=== PATIENT | male | born 1935 | race Caucasian/White ===

== ENCOUNTER 2017-11-07 07:42 | Day surgery (SDC) | payer OTHER ==
[~2017-11-07] VITALS: Ht 180.3 cm; Wt 71.8 kg
[~2017-11-07 07:42] MED LIST: ALBU90OI61; ASPI81CH; CICLOPIROX 8%34.6 ML; DAILY MULTIPLE1 EACH; FISH1000; METF500 PO; TRIA80TC
== END 2017-11-07 10:04 | disposition home or self-care (01) ==
LOC: ORSCSDS 07:42
PROVIDERS: Internal Medicine Gastroenterology
PROC: 0DBL8ZX Excision of Transverse Colon, Via Natural or Artificial Opening Endoscopic, Diagnostic (ICD-10-PCS; principal; 2017-11-07 09:00)
DX: R19.4 Change in bowel habit (principal); D12.3 Benign neoplasm of transverse colon; K57.30 Diverticulosis of large intestine without perforation or abscess without bleeding; K64.8 Other hemorrhoids; E11.9 Type 2 diabetes mellitus without complications; E78.5 Hyperlipidemia, unspecified; I10 Essential (primary) hypertension; D64.9 Anemia, unspecified; Z80.0 Family history of malignant neoplasm of digestive organs; Z86.010 Personal history of colon polyps; Z87.891 Personal history of nicotine dependence; Z79.84 Long term (current) use of oral hypoglycemic drugs; Z79.899 Other long term (current) drug therapy
CPT/HCPCS: 82947; 88305; J7120

== ENCOUNTER → 2018-07-15 | Outpatient (CLI) | payer OTHER | END | disposition home or self-care (01) | LOC: LAB SHORT 10:16 → PLD 10:16 | DX: D48.5 Neoplasm of uncertain behavior of skin (principal) | CPT/HCPCS: 88305 ==

== ENCOUNTER → 2018-07-22 | Outpatient (CLI) | payer OTHER | END | disposition home or self-care (01) | LOC: LAB SHORT 14:36 → PLD 14:36 | DX: C44.310 Basal cell carcinoma of skin of unspecified parts of face (principal) | CPT/HCPCS: 88305 ==

== ENCOUNTER 2019-03-03 11:00 | Inpatient (IN) | payer OTHER ==
[~2019-03-03] VITALS: Ht 182.9 cm; Wt 75.2 kg
[2019-03-03 11:47] LABS: BASOPHILS ABSOLUTE AUTO 0.07 K/mm3 (0.00-0.23); BASOPHILS PERCENT AUTO 1 % (0-2); EOSINOPHILS ABSOLUTE AUTO 0.31 K/mm3 (0.00-0.68); EOSINOPHILS PERCENT AUTO 3 % (0-6); Hematocrit 35.5 % (37.0-53.0); Hemoglobin 11.9 g/dL (13.5-17.5); IMMATURE GRAN ABSOLUTE AUTO 0.04 K/mm3 (0.00-0.10); IMMATURE GRAN PERCENT AUTO 0 % (0-1); LYMPHOCYTES ABSOLUTE AUTO 2.06 K/mm3 (0.84-5.20); LYMPHOCYTES PERCENT AUTO 21 % (21-46); MONOCYTES ABSOLUTE AUTO 0.61 K/mm3 (0.16-1.47); MONOCYTES PERCENT AUTO 6 % (4-13); Mean Corpuscular HGB 31.4 pg (26.0-34.0); Mean Corpuscular HGB Conc 33.5 g/dL (31.5-36.5); Mean Corpuscular Volume 94 fL (80-100); Mean Platelet Volume 9.5 fL (9.1-12.4); NEUTROPHILS ABSOLUTE AUTO 6.71 K/mm3 (1.96-9.15); NEUTROPHILS PERCENT AUTO 69 % (41-73); Platelet Count 217 K/mm3 (150-400); RDW Coefficient Variation 11.8 % (11.7-14.2); RDW Standard Deviation 40.4 fL (35.1-46.3); Red Blood Cell Count 3.79 M/mm3 (4.30-5.90)
[2019-03-03 12:00] LABS: Albumin, Blood 3.6 g/dL (3.4-5.0); Albumin/Globulin Ratio 0.9 (0.8-1.8); Bilirubin, Total 0.4 mg/dL (0.1-1.0); Bun/Creatinine Ratio 15.9 (12.0-20.0); Calcium, Blood 8.7 mg/dL (8.5-10.1); Creatinine, Blood 1.45 mg/dL (0.60-1.20); Potassium, Blood 4.1 mmol/L (3.5-5.5); Total Protein, Blood 7.6 g/dL (6.4-8.2); Troponin I 0.089 ng/mL (0.000-0.040)
[2019-03-03 12:10] LABS: International Normalized Ratio 0.97; Prothrombin Time Results 10.3 Sec (9.7-11.5)
--- NOTE | 2019-03-03 15:06 | NUR ---
Echocardiogram completed.
--- NOTE | 2019-03-03 16:10 | NUR ---
Assumed care of patient @ 1610. Received report from ED nurse Tisha. Patient arrived on ER bed transported by jewelry technician. Patient transferred self to bed with standby assist and was able to follow verbal commands. Oriented to room and call light. Urinal provided at bedside.
--- NOTE | 2019-03-03 17:55 | NUR ---
Shift Summary Patient arrived to unit 1610. Pleasant and cooperative with care. Very hard of hearing. 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 1 person SBA to bathroom and urinal at bedside. Tele. No c/o pain, N/V/D. Patient state independent at home. Still complaining of slight right arm weakness which is no different from before coming to the hospital. Will continue to monitor.
--- NOTE | 2019-03-04 03:56 | NUR ---
SHIFT SUMMARY PT ADMITTED FOR ACUTE CVA. DNR. CARDIAC DIET. CBG BEFORE MEALS. HAPARIN FOR DVT PROPHYLAXIS. TELE-NSR AT A RATE OF 74 PER CHILD DEVELOPMENT ASSISTANT. PT IS [place], L EAR WITH COMPLETE HEARING LOSS AND R EAR WITH 50% HEARING LOSS. PT ABLE TO READ LIPS, SPEAK CLEARLY AND ASSESS UNDERSTANDING. 20G IV TO L WRIST. PT IS IND WITH URINAL AT BEDSIDE, 1 PERSON ASSIST WITH TRANSFERS. BEDSIDE SWOLLOW EVAL COMPLETED TO ASSESS IF PT COULD SAFELY SWOLLOW MEDICATIONS, PT ABLE TO TOLLERATE WATER WITHOUT DIFFICULTY AND MEDS 1 AT A TIME WITH NO APPARENT COMPLICATIONS. PT HAS APPEARED TO SLEEP COMFORTABLY MOST OF THE NIGHT WITH NO APPARRENT SIGNS OF ACUTE DISTRESS. FREQUENT VISUAL CHECKS IT IS NOT CLEAR IF PT USES CALL LIGHT APPROPRIATELY. BED ALARM FOR SAFETY.
[2019-03-04] MEDS ORDERED: XARELTO PO (14:36)
[2019-03-04] MEDS ORDERED: ACET325 PO (14:37)
[2019-03-04] MEDS ORDERED: ATOR40TA PO (14:38)
[2019-03-04] MEDS ORDERED: ASPI81CH PO (14:38)
[2019-03-04] MEDS ORDERED: SENN187 PO (14:39)
--- NOTE | 2019-03-04 15:37 | NUR ---
DISCHARGE PT DISCHARGED TO HOME. THIS RN EXPLAINED DISCHARGE INSTRUCTIONS AND MEDICATIONS TO PT AND HE REPORTS HE UNDERSTANDS. IV REMOVED WITHOUT DIFFICULTY. THIS RN TRANSFERRED PT TO 2ND FLOOR WITH FINANCIAL PERSON VIA WHEELCHAIR. PT'S BELONGINGS WITH PT.
== END 2019-03-04 15:19 | disposition home health service (06) | DRG 66 ==
LOC: ER 11:00 → MEDS 14:22 → ENPENDDIS 03-04 12:37 → MEDS 03-04 15:19
PROVIDERS: Emergency Medicine; ADMIT Hospitalist
DX: I63.9 Cerebral infarction, unspecified (principal); E11.22 Type 2 diabetes mellitus with diabetic chronic kidney disease; N18.3 Chronic kidney disease, stage 3 (moderate); D63.1 Anemia in chronic kidney disease; I12.9 Hypertensive chronic kidney disease with stage 1 through stage 4 chronic kidney disease, or unspecified chronic kidney disease; R29.810 Facial weakness; R47.81 Slurred speech; Z66 Do not resuscitate; Z88.2 Allergy status to sulfonamides; Z88.8 Allergy status to other drugs, medicaments and biological substances; Z87.891 Personal history of nicotine dependence; Z79.84 Long term (current) use of oral hypoglycemic drugs
CPT/HCPCS: 36415; 70496; 70551; 80053; 82947; 84484; 85025; 85610; 85730; 92610; 93005; 93010; 93306; 97161; 97166; 97530; 97535; 99285-25; J1644; Q9967

== ENCOUNTER 2019-03-30 07:29 | Emergency (ER) | payer OTHER ==
[~2019-03-30] VITALS: Ht 180.3 cm; Wt 72.1 kg
[~2019-03-30 07:29] MED LIST changes: +ACET325 PO; +ASPI81CH PO; +ATOR40TA PO; +SENN187 PO; +XARELTO PO
[2019-03-30 09:06] LABS: BASOPHILS ABSOLUTE AUTO 0.05 K/mm3 (0.00-0.23); BASOPHILS PERCENT AUTO 0 % (0-2); EOSINOPHILS ABSOLUTE AUTO 0.06 K/mm3 (0.00-0.68); EOSINOPHILS PERCENT AUTO 0 % (0-6); Hematocrit 34.2 % (37.0-53.0); Hemoglobin 11.3 g/dL (13.5-17.5); IMMATURE GRAN ABSOLUTE AUTO 0.06 K/mm3 (0.00-0.10); IMMATURE GRAN PERCENT AUTO 0 % (0-1); LYMPHOCYTES ABSOLUTE AUTO 1.31 K/mm3 (0.84-5.20); LYMPHOCYTES PERCENT AUTO 9 % (21-46); MONOCYTES ABSOLUTE AUTO 0.94 K/mm3 (0.16-1.47); MONOCYTES PERCENT AUTO 7 % (4-13); Mean Corpuscular HGB 31.5 pg (26.0-34.0); Mean Corpuscular Volume 95 fL (80-100); NEUTROPHILS ABSOLUTE AUTO 11.66 K/mm3 (1.96-9.15); NEUTROPHILS PERCENT AUTO 83 % (41-73); RDW Coefficient Variation 11.8 % (11.7-14.2); RDW Standard Deviation 40.6 fL (35.1-46.3); Red Blood Cell Count 3.59 M/mm3 (4.30-5.90); White Blood Cell Count 14.08 K/mm3 (4.00-11.30)
[2019-03-30 09:11] LABS: Mean Platelet Volume 9.9 fL (9.1-12.4); Platelet Count 213 K/mm3 (150-400)
[2019-03-30 09:26] LABS: Albumin, Blood 3.7 g/dL (3.4-5.0); Albumin/Globulin Ratio 0.9 (0.8-1.8); Bilirubin, Total 0.5 mg/dL (0.1-1.0); Bun/Creatinine Ratio 17.2 (12.0-20.0); Calcium, Blood 8.9 mg/dL (8.5-10.1); Creatinine, Blood 1.51 mg/dL (0.60-1.20); Globulin, Blood 3.9 g/dL (2.2-4.0); Potassium, Blood 4.8 mmol/L (3.5-5.5); Total Protein, Blood 7.6 g/dL (6.4-8.2)
[2019-03-30 10:21] LABS: International Normalized Ratio 0.95; Prothrombin Time Results 10.1 Sec (9.7-11.5)
== END 2019-03-30 10:56 | disposition home or self-care (01) ==
LOC: ER 07:29
PROVIDERS: Physician Assistant
DX: S82.831A Other fracture of upper and lower end of right fibula, initial encounter for closed fracture (principal); W18.30XA Fall on same level, unspecified, initial encounter; Z88.8 Allergy status to other drugs, medicaments and biological substances; Z88.1 Allergy status to other antibiotic agents; Z79.84 Long term (current) use of oral hypoglycemic drugs; Z79.82 Long term (current) use of aspirin; Z79.899 Other long term (current) drug therapy; Z86.73 Personal history of transient ischemic attack (TIA), and cerebral infarction without residual deficits; E11.9 Type 2 diabetes mellitus without complications; I10 Essential (primary) hypertension; Z87.891 Personal history of nicotine dependence
CPT/HCPCS: 29515; 36415; 73610; 80053; 85025; 85610; 99283-25

== ENCOUNTER → 2020-09-14 | Outpatient (CLI) | payer OTHER ==
[~2020-09-14] MED LIST changes: +CLOP75
== END ==
LOC: PLD 12:37 → LAB SHORT 12:37
DX: D48.5 Neoplasm of uncertain behavior of skin (principal); Z88.2 Allergy status to sulfonamides; Z88.8 Allergy status to other drugs, medicaments and biological substances
CPT/HCPCS: 88305